=== PATIENT | male | born 1995 | race Caucasian/White ===

== ENCOUNTER 2017-08-12 09:16 | Emergency (ER) | payer BC, MEDICAID ==
[~2017-08-12] VITALS: Ht 172.7 cm; Wt 71.0 kg
[2017-08-12] MEDS ORDERED: IBUP-1984 PO (09:52)
[2017-08-12 10:10] VITALS: BP_SYST 113
== END 2017-08-12 10:10 | disposition home or self-care (01) ==
LOC: ER 09:16
DX: S92.351A Displaced fracture of fifth metatarsal bone, right foot, initial encounter for closed fracture (principal); Z88.6 Allergy status to analgesic agent; W01.0XXA Fall on same level from slipping, tripping and stumbling without subsequent striking against object, initial encounter; Y93.89 Activity, other specified; Y92.89 Other specified places as the place of occurrence of the external cause; Y99.8 Other external cause status
CPT/HCPCS: 73630; 99284; L3260